=== PATIENT | male | born 1945 | race Caucasian/White ===

== ENCOUNTER → 2016-08-23 | Outpatient (CLI) | payer MEDICARE ==
[~2016-08-23] MED LIST: ALBU0.21 IH; ALOE1CAP PO; ASCO-297 PO; ASPI-611 PO; ATEN-39 PO; CA C1TAB81 PO; CIPR-151 PO; ELDERBERRY; FLAX100029 PO; FLUT1DIS30; GADOBUTROL 10mMol/10ml INJECTION IV ONE; LACT10SO PO; MAGN100T3 PO; MILK200C2 PO; MONT10TA15 PO; MULT-635 PO; NORMAL SALINE 50 ML IV ONE; SALINE FLUSH 10ml SYRINGE ONE; TIOT18CA6 IH; TRAM-277 PO; [UNRECOGNIZED DRUG - CODE] PO; [UNRECOGNIZED DRUG - CODE] PO; [UNRECOGNIZED DRUG - CODE] PO
--- NOTE | 2016-08-23 09:42 | DI ---
Indication: ITS.REASON: B18.2 CHRONIC HEPATITIS C WITHOUT MENTION OF HEPATIC COMA PROCEDURE: MRI ABDOMEN W/WO CONTRAST: Encounter: Initial Comparison: July 08, 2013 Technique: Multiplanar multisequence MR imaging of the abdomen was performed with and without contrast. Contrast: 10 mL Gadavist Findings: Exam is severely limited due to respiratory motion artifact. There is no obvious large T2 hyperintense or enhancing hepatic mass. The liver contour is again abnormal with a nodular cirrhotic configuration. The spleen, pancreas, adrenal glands and kidneys are grossly stable. Mild atherosclerotic plaque in the utilized aorta. Impression: Severely limited essentially nondiagnostic exam without obvious enhancing mass. Patient would probably be better evaluated with a biphasic abdominal CT given the difficulty in breath holding. .
== END ==
LOC: IMA 06:33
PROVIDERS: ATTEND Internal Medicine
DX: B18.2 Chronic viral hepatitis C (principal)
CPT/HCPCS: 74183; A9585; J7050